=== PATIENT | male | born 1995 | race Caucasian/White ===

== ENCOUNTER 2019-03-11 08:03 | Emergency (ER) | payer MEDICAID ==
[~2019-03-11] VITALS: Ht 162.6 cm; Wt 63.0 kg
[~2019-03-11 08:03] MED LIST: ACET1TAB12 PO; HYDR-4353 PO; KETO10TA2 PO; ONDA8TAB9 PO; TAMS0.4C32 PO; ZOF4T PO
[2019-03-11 08:05] VITALS: BP 120/73
== END 2019-03-11 08:24 | disposition left against medical advice (07) ==
LOC: ER 08:03
DX: K02.9 Dental caries, unspecified (principal); N18.9 Chronic kidney disease, unspecified; F41.9 Anxiety disorder, unspecified; F10.99 Alcohol use, unspecified with unspecified alcohol-induced disorder; F12.90 Cannabis use, unspecified, uncomplicated; Z79.899 Other long term (current) drug therapy; Y90.9 Presence of alcohol in blood, level not specified
CPT/HCPCS: 99281

== ENCOUNTER 2019-05-06 17:02 | Emergency (ER) | payer MEDICAID ==
[~2019-05-06] VITALS: Ht 162.6 cm; Wt 65.0 kg
[2019-05-06 17:11] VITALS: BP 137/86
[2019-05-06] MEDS ORDERED: HYDROcodone/acetaminophen 5mg/325mg tablet PO ONE (18:00)
[2019-05-06] MEDS ORDERED: PENI250T2 PO (18:02)
== END 2019-05-06 18:11 | disposition home or self-care (01) ==
LOC: ER 17:02
DX: K08.89 Other specified disorders of teeth and supporting structures (principal); N18.9 Chronic kidney disease, unspecified; F41.9 Anxiety disorder, unspecified; F12.90 Cannabis use, unspecified, uncomplicated; Z72.89 Other problems related to lifestyle; Z79.899 Other long term (current) drug therapy
CPT/HCPCS: 99283

== ENCOUNTER 2022-04-07 12:18 | Emergency (ER) | payer MEDICAID ==
[~2022-04-07] VITALS: Ht 165.1 cm; Wt 86.4 kg
[2022-04-07 13:09] VITALS: BP 129/84
[2022-04-07] MEDS ORDERED: LIDOCAINE 2%/EPI 1:100,000 inj. Multi-dose 20 ML VIAL IJ ONE (14:50)
[2022-04-07] MEDS ORDERED: sulfamethoxazole/trimethoprim DS (800/160mg) tablet PO ONE (15:50)
[2022-04-07] MEDS ORDERED: ibuprofen tablet 400 MG TABLET PO ONE (15:50)
[2022-04-07] MEDS ORDERED: SULF1TAB49 PO (15:56)
== END 2022-04-07 16:22 | disposition home or self-care (01) ==
LOC: ER 12:19
DX: L05.01 Pilonidal cyst with abscess (principal); N18.9 Chronic kidney disease, unspecified; F41.9 Anxiety disorder, unspecified; F12.10 Cannabis abuse, uncomplicated; Z79.899 Other long term (current) drug therapy; Z79.1 Long term (current) use of non-steroidal anti-inflammatories (NSAID)
CPT/HCPCS: 10080; 99283; A6449

== ENCOUNTER 2022-04-09 12:53 | Emergency (ER) | payer MEDICAID ==
[~2022-04-09] VITALS: Ht 165.1 cm; Wt 85.0 kg
[~2022-04-09 12:53] MED LIST changes: +SULF1TAB49 PO
[2022-04-09 12:55] VITALS: BP 138/89
== END 2022-04-09 14:25 | disposition home or self-care (01) ==
LOC: ER 12:54
DX: Z48.00 Encounter for change or removal of nonsurgical wound dressing (principal); G89.29 Other chronic pain; M54.50 Low back pain, unspecified; F12.90 Cannabis use, unspecified, uncomplicated
CPT/HCPCS: 99281

== ENCOUNTER 2023-08-30 11:01 | Emergency (ER) | payer MEDICAID ==
[~2023-08-30] VITALS: Ht 162.6 cm; Wt 89.7 kg
[~2023-08-30 11:01] MED LIST changes: -SULF1TAB49 PO
[2023-08-30 11:14] VITALS: BP 139/91; PULSE 94; RESP 16; O2SAT 97
[2023-08-30] MEDS: LIDOcaine 1% W/epiNEPHrine 1:100,000 20ml vial IJ ONE (13:55)
[2023-08-30] MEDS: LIDOcaine/epinephrine/tetracaine TOPICAL sol 3 ML syringe TOP ONE (13:55)
[2023-08-30] MEDS ORDERED: SULF1TAB49 PO (14:39)
[2023-08-30 14:44] VITALS: TEMP 98.4
== END 2023-08-30 14:45 | disposition home or self-care (01) ==
LOC: ER 11:01
DX: L02.31 Cutaneous abscess of buttock (principal); F12.90 Cannabis use, unspecified, uncomplicated
CPT/HCPCS: 10060; 99283; A6407; J3490; A6449

== ENCOUNTER 2023-12-11 10:26 | Emergency (ER) | payer MEDICAID ==
[~2023-12-11] VITALS: Ht 162.6 cm; Wt 91.4 kg
[2023-12-11] MEDS: LIDOcaine 1% W/epiNEPHrine 1:100,000 20ml vial IJ ONE (12:43)
[2023-12-11] MEDS ORDERED: SULF1TAB48 PO (12:53)
[2023-12-11] MEDS ORDERED: AMOX-117 PO (12:53)
[2023-12-11 13:03] VITALS: BP 130/99; PULSE 92; RESP 16; TEMP 97.5; O2SAT 97
== END 2023-12-11 13:04 | disposition home or self-care (01) ==
LOC: ER 10:26
DX: K61.0 Anal abscess (principal); F41.9 Anxiety disorder, unspecified; N18.9 Chronic kidney disease, unspecified; Z79.1 Long term (current) use of non-steroidal anti-inflammatories (NSAID); Z79.2 Long term (current) use of antibiotics; Z79.899 Other long term (current) drug therapy
CPT/HCPCS: 46050; 99284; A6449